=== PATIENT | female | born 2005 | race Caucasian/White ===

== ENCOUNTER 2025-02-26 02:38 | Emergency (ER) | payer MEDICAID ==
[~2025-02-26] VITALS: Ht 162.6 cm; Wt 82.6 kg
[2025-02-26 02:47] VITALS: TEMP 36.7; O2SAT 98
[2025-02-26] MEDS ORDERED: BO1 TP (03:45)
[2025-02-26] MEDS: BACITRACIN ZINC OINT UDPKT TOP ONE (04:32)
[2025-02-26] MEDS: BACITRACIN 14GM TUBE TOP ONE (04:33)
[2025-02-26 04:37] VITALS: BP 108/67; PULSE 75; RESP 18; O2SAT 98
== END 2025-02-26 04:43 | disposition home or self-care (01) ==
LOC: ER 02:38
DX: T23.171A Burn of first degree of right wrist, initial encounter (principal); Z79.899 Other long term (current) drug therapy; Y92.89 Other specified places as the place of occurrence of the external cause
CPT/HCPCS: 16000; 99283